=== PATIENT | male | born 1985 | race African-American/Black ===

== ENCOUNTER 2017-10-20 17:10 | Emergency (ER) | payer SELFPAY ==
[~2017-10-20 17:10] MED LIST: ISOVUE-370 76%-LOCM 1 ML ONE
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
[2017-10-20] MEDS ORDERED: Fentanyl 100 MCG/2 ML VIAL ONE (18:04)
[2017-10-20] MEDS ORDERED: Ondansetron ODT 4 MG TAB ONE (18:05)
[2017-10-20 18:33] LABS: #Basophils 0.1 thou/uL (0.0-0.2); #Lymphocytes 1.5 thou/uL (1.20-3.40); #Monocytes 0.5 thou/uL (0.11-0.59); #Neutrophils 2.3 thou/uL (1.40-6.50); %Basophils 1.6 % (0.0-1.0); %Eosinophils 0.4 % (0.0-10.0); %Monocytes 11.6 % (0.0-10.0); %Neutrophils 52.4 % (42.0-75.0); Hemoglobin 12.8 g/dL (14.0-18.0); Mean Corpuscular HGB CONC 34.5 g/dL (32.0-36.0); Mean Corpuscular Hemoglobin 31.1 pg (27.0-31.0); Mean Corpuscular Volume 90.4 fL (78.0-98.0); Mean Platelet Volume 6.9 fL (7.4-10.4); Platelet Count 218 thou/uL (130-400); RBC Distribution Width 11.5 % (11.5-14.5); Red Blood Cell (RBC) Count 4.12 mill/uL (4.70-6.10); White Blood Cell (WBC) Count 4.3 thou/uL (4.8-10.8)
[2017-10-20 18:39] LABS: INR-International Normal Ratio 1.1; Prothrombin Time 13.9 SEC (12.0-14.7)
[2017-10-20 18:54] LABS: Alcohol Less than 10 mg/dL (Less than 10); Anion Gap 16 mmol/L (10-20); BUN (Urea Nitrogen) 7 mg/dL (8.9-20.6); Calc. Creatinine Clearance 0 mL/min (70-130); Calcium 9.3 mg/dL (7.8-10.44); Carbon Dioxide 23 mmol/L (22-29); Chloride 107 mmol/L (98-107); Estimated GFR-MDRD 86; Glucose 98 mg/dL (70-105); Potassium 3.7 mmol/L (3.5-5.1); Sodium 142 mmol/L (136-145)
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
[2017-10-20] MEDS ORDERED: Ketorolac Tromethamine 30 MG/ML VIAL ONE (19:54)
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
== END 2017-10-20 21:40 | disposition home or self-care (01) ==
LOC: ERS 17:10
DX: S10.93XA Contusion of unspecified part of neck, initial encounter (principal); F31.9 Bipolar disorder, unspecified; F17.210 Nicotine dependence, cigarettes, uncomplicated; V43.52XA Car driver injured in collision with other type car in traffic accident, initial encounter
CPT/HCPCS: 36415; 70450; 70486; 70498; 72125; 80048; 80307; 85025; 85610; 96361; 96374; 96375; J1885; J2270; J3010; Q0162